=== PATIENT | male | born 1980 | race Caucasian/White ===

== ENCOUNTER 2016-06-12 10:44 | Emergency (ER) | payer OTHER ==
[~2016-06-12] VITALS: Ht 193 cm; Wt 124.7 kg
[2016-06-12 10:56] VITALS: BP 137/92
== END 2016-06-12 12:25 | disposition home or self-care (01) ==
LOC: ER 10:54
DX: S70.02XA Contusion of left hip, initial encounter (principal); F17.210 Nicotine dependence, cigarettes, uncomplicated; V00.131A Fall from skateboard, initial encounter; Y93.51 Activity, roller skating (inline) and skateboarding; Y99.8 Other external cause status; Y92.89 Other specified places as the place of occurrence of the external cause
CPT/HCPCS: 73502